=== PATIENT | male | born 1990 | race Caucasian/White ===

== ENCOUNTER 2020-04-15 11:40 | Day surgery (SDC) | payer MEDICAID ==
[~2020-04-15] VITALS: Ht 190.5 cm; Wt 134.1 kg
[2020-04-15] MEDS ORDERED: FLUTICASONE PRO16 GM NASAL (11:52)
[2020-04-15 12:25] LABS: BASOPHILS 0.3 % (0-2); EOSINOPHILS 3.8 % (0-7); HEMATOCRIT 41.6 % (42.0-54.0); HEMOGLOBIN 14.2 g/dL (13.5-17.5); IMMATURE GRANULOCYTES 0.1 % (0-5); LYMPHOCYTES 31.6 % (15-50); MCH 29.4 pg (26.0-34.0); MCHC 34.1 g/dL (31.0-37.0); MCV 86.1 fL (80.0-100.0); MEAN PLATELET VOLUME 9.7 fL (7.4-10.4); MONOCYTES 6.3 % (2-11); NEUTROPHILS 57.9 % (40-80); PLATELET COUNT 273 10x3/uL (130-400); RBC 4.83 10x6/uL (4.20-6.10); RDW 12.8 % (11.5-14.5); WBC 7.9 10x3/uL (4.8-10.8)
[2020-04-15 12:34] LABS: CALC OSMOLALITY 280 mosm/kg (275-300); CALCIUM 8.6 mg/dL (8.5-10.1); CARBON DIOXIDE 26.6 mmol/L (21.0-32.0); CHLORIDE - SERUM 106 mmol/L (98-107); CREATININE - SERUM 1.2 mg/dL (0.6-1.3); GLUCOSE 132 mg/dL (74-106); POTASSIUM - SERUM 3.9 mmol/L (3.5-5.1); SODIUM 139 mmol/L (136-145); UREA NITROGEN 14 mg/dL (7-18); eGFR NON AFRICAN AMERICAN 75 mL/min (90-120)
[2020-04-15 12:40] LABS: ALBUMIN 3.6 g/dL (3.4-5.0); ALKALINE PHOSPHATASE 75 U/L (30-120); ALT (SGPT) 53 U/L (10-68); BILIRUBIN - TOTAL 0.43 mg/dL (0.2-1.3)
[2020-04-15 17:57] VITALS: BP 138/75; Ht 190.5 cm; Wt 134.1 kg
--- NOTE | 2020-04-15 18:34 | NUR ---
PATIENT LEFT FOR SURGERY UNDER CARE OF SURGERY STAFF. STABLE AT TIME OF DEPARTURE
[2020-04-15] MEDS ORDERED: PERCOCET 10-321 EAC1 PO (19:28)
[2020-04-15] MEDS ORDERED: AUGMENTIN 875-11 TAB PO (19:29)
[2020-04-15 20:30] VITALS: BP 147/77
--- NOTE | 2020-04-15 21:00 | NUR ---
PT ARRIVED BACK TO ROOM FROM SURGERY. STATES HE HAS NO PAIN AT THIS TIME. DRESSING TO LEFT THUMB C/D/I. VITALS SIGNS STABLE. REMOVED RIGHT FOREARM IV CATHETER INTACT. TYPED DISCHARGE PAPERS AND REVIEWED WITH PT. PT REFUSED WHEELCHAIR. PT AMBULATORY AND ESCORTED TO FRONT DOOR BY ASSOCIATE ACCOUNT EXECUTIVE.
--- NOTE | 2020-04-16 09:12 | OP ---
PATIENT NAME: MARY SOUTH MEDICAL RECORD: [id number] :88 [facility] AD[facility] DATE: SURGEON: MELIZA BAJWA DO DATE OF OPERATION: 04/15/2020 PROCEDURE PERFORMED: Left thumb irrigation, debridement, and a V-Y flap for closure. PREOPERATIVE DIAGNOSIS: Partial amputation, left thumb and open fracture, left distal phalanx. POSTOPERATIVE DIAGNOSIS: Partial amputation, left thumb and open fracture, left distal phalanx. INDICATIONS: Mr. South is a 30-year-old male who was using table saw today kicked back and cut the tip of his left thumb off. He was seen in the ER and he had some sensation of the tip, but there is no nail. The nail was completely gone. I informed that we would need to get that covered; we have to do it today and get it done and send him home. We did give him IV antibiotics and pain medicine. He was okay with that and was aware of the risks including infection, bleeding, damage to nerves and vessels in the area, need for further surgery, continued pain, and he signed the consent. SURGEON: Meliza Bajwa DO DESCRIPTION OF PROCEDURE: The patient was taken to the operative suite, given a gram of Ancef. The left upper extremity was prepped and draped in sterile fashion. Timeout was performed. Everyone was in agreement with correct side, site, patient and procedure. He was not given any sedation due to the fact he was fed on the floor prior to coming to the OR. We then used 0.25% Marcaine with epinephrine, approximately 12 mL of it to anesthetize the thumb doing digital block, more local block at the site where he was still feeling some. After that was done and numb, I put a finger tourniquet on the base of the thumb and then debrided the wound and irrigated out with approximately 150 mL normal saline and debrided of any tissue there, any spikes over the distal phalanx that was left sticking out were rongeured back to make a smooth surface. I then cut a V in the palmar aspect of the thumb and rotated up to the void after debriding some of the pulp of the pad of the thumb and with horizontal mattress and simple sutures sutured it up to cover the open area and then covered that with Adaptic, 4 x 4s, and tube gauze. He was then taken back to his room in stable condition. BLOOD LOSS: Minimal. COMPLICATIONS: None. The tourniquet was removed and was on for about 20 minutes. TRANSINT:[id number] Voice Confirmation ID: [id number] DOCUMENT ID: [id number] OPERATIVE REPORT [id number] MARY SOUTH MICHAEL D, DO at 0912 CC: [id number] DICTATION DATE: 04/15/201933 MINE MOTOR ENGINEER: 04/16/20 [id number] [facility] 04/15/20 [facility] [address] [place] [address]
== END 2020-04-15 21:10 | disposition home or self-care (01) ==
LOC: D.MS 11:40 → D.ER 11:40 → D.OPS 11:40 → D.MS 13:23 → EDSTATUS 17:30 → D.OPS 21:10
PROVIDERS: Family Medicine; ATTEND Orthopaedic Surgery
DX: S68.022A Partial traumatic metacarpophalangeal amputation of left thumb, initial encounter (principal); W45.8XXA Other foreign body or object entering through skin, initial encounter; Y93.9 Activity, unspecified; Y92.9 Unspecified place or not applicable